=== PATIENT | female | born 1940 | race Caucasian/White ===

== ENCOUNTER 2020-06-09 09:44 | Outpatient (CLI) | payer MEDICARE, BC, SELFPAY | END 2020-06-09 09:45 | disposition home or self-care (01) | LOC: CHSLAB 09:54 | PROVIDERS: PCP Internal Medicine Geriatric Medicine; Visit Provider Specialist | DX: D22.5 Melanocytic nevi of trunk (principal) | CPT/HCPCS: 88305 ==

== ENCOUNTER 2021-10-26 15:49 | Outpatient (CLI) | payer MEDICARE, BC, SELFPAY | END 2021-10-26 15:50 | disposition home or self-care (01) | LOC: CHSLAB 15:53 | PROVIDERS: PCP Internal Medicine Geriatric Medicine; Visit Provider Specialist | DX: D22.39 Melanocytic nevi of other parts of face (principal) | CPT/HCPCS: 88305 ==